=== PATIENT | female | born 1995 | race Caucasian/White ===

== ENCOUNTER → 2024-05-19 14:42 | Outpatient (REF) | payer BC, SELFPAY | LOC: PNTC 14:42 | PROVIDERS: ATTENDING PHYSICIAN Obstetrics & Gynecology | DX: Z36.0 Encounter for antenatal screening for chromosomal anomalies (principal); Z36.82 Encounter for antenatal screening for nuchal translucency; Z87.59 Personal history of other complications of pregnancy, childbirth and the puerperium | CPT/HCPCS: 76801; 76813 ==

== ENCOUNTER → 2024-06-14 10:52 | Outpatient (REF) | payer BC, SELFPAY | LOC: PNTC 10:52 | PROVIDERS: ATTENDING PHYSICIAN Obstetrics & Gynecology | DX: Z87.59 Personal history of other complications of pregnancy, childbirth and the puerperium (principal); Z36.9 Encounter for antenatal screening, unspecified | CPT/HCPCS: 76805; 76817 ==

== ENCOUNTER → 2024-07-14 08:11 | Outpatient (REF) | payer BC, SELFPAY | LOC: PNTC 08:11 | PROVIDERS: ATTENDING PHYSICIAN Obstetrics & Gynecology | DX: Z87.59 Personal history of other complications of pregnancy, childbirth and the puerperium (principal); Z36.9 Encounter for antenatal screening, unspecified; Z36.3 Encounter for antenatal screening for malformations | CPT/HCPCS: 76811; 76817 ==

== ENCOUNTER → 2024-08-09 06:59 | Outpatient (REF) | payer BC, SELFPAY | LOC: PNTC 06:59 | PROVIDERS: ATTENDING PHYSICIAN Obstetrics & Gynecology | DX: Z34.90 Encounter for supervision of normal pregnancy, unspecified, unspecified trimester (principal) | CPT/HCPCS: 76816 ==

== ENCOUNTER 2024-08-17 19:39 | Observation (INO) | payer BC, SELFPAY ==
[2024-08-17 20:03] VITALS: BP 119/58; BMI 25.8
[2024-08-17] MEDS: BENADRYL 25 MG IV (20:10)
[2024-08-17] MEDS: REGLAN 10 MG IV (20:16)
[2024-08-17 20:26] LABS: Hematocrit 36.5 % (37.0-47.0); Hemoglobin 12.7 g/dL (12.0-16.0); Mean Corp Hgb Conc. 34.8 g/dL (33.0-37.0); Mean Corpuscular Volume 89.2 fL (81.0-99.0); Platelet Count 265 10^3/uL (130-400); Red Cell Dist. Width 12.8 % (11.5-14.5)
[2024-08-17 20:49] LABS: ALT (SGPT) 16 U/L (0-35); AST (SGOT) 18 U/L (14-36); Albumin 3.3 g/dl (3.5-5.0); Alkaline Phosphatase 68 U/L (38-126); Blood Urea Nitrogen 12 mg/dl (7-17); Calcium 9.2 mg/dl (8.4-10.2); Carbon Dioxide 21 mmol/L (22-30); Chloride 108 mmol/L (98-107); Estimated Creatinine Clearance > 125 ml/min; Glucose 127 mg/dl (70-99); Potassium 3.5 mmol/L (3.5-5.1); Sodium 135 mmol/L (135-145); Total Protein 5.9 g/dl (6.3-8.2); eGFR > 60.00
== END 2024-08-17 21:56 | disposition home or self-care (01) ==
LOC: LDRP 19:39
PROVIDERS: ADMITTING PHYSICIAN Student in an Organized Health Care Education/Training Program; REFERRING PHYSICIAN Family Medicine
DX: O26.892 Other specified pregnancy related conditions, second trimester (principal); R51.9 Headache, unspecified; Z3A.25 25 weeks gestation of pregnancy
CPT/HCPCS: 80053; 82570; 84156; 85027; G0378

== ENCOUNTER → 2024-09-01 09:54 | Outpatient (REF) | payer BC, SELFPAY | LOC: PNTC 09:54 | PROVIDERS: ATTENDING PHYSICIAN Obstetrics & Gynecology | DX: Z34.90 Encounter for supervision of normal pregnancy, unspecified, unspecified trimester (principal) | CPT/HCPCS: 76816 ==

== ENCOUNTER → 2024-10-04 07:50 | Outpatient (REF) | payer BC, SELFPAY | LOC: PNTC 07:50 | PROVIDERS: ATTENDING PHYSICIAN Obstetrics & Gynecology | DX: Z34.90 Encounter for supervision of normal pregnancy, unspecified, unspecified trimester (principal); O36.5990 Maternal care for other known or suspected poor fetal growth, unspecified trimester, not applicable or unspecified; O28.3 Abnormal ultrasonic finding on antenatal screening of mother | CPT/HCPCS: 59025; 76816; 76820 ==

== ENCOUNTER → 2024-10-11 14:58 | Outpatient (REF) | payer BC, SELFPAY | LOC: PNTC 14:58 | PROVIDERS: ATTENDING PHYSICIAN Obstetrics & Gynecology | DX: O36.5990 Maternal care for other known or suspected poor fetal growth, unspecified trimester, not applicable or unspecified (principal) | CPT/HCPCS: 59025; 76815; 76820 ==

== ENCOUNTER → 2024-10-18 11:00 | Outpatient (REF) | payer BC, SELFPAY | LOC: PNTC 11:00 | PROVIDERS: ATTENDING PHYSICIAN Obstetrics & Gynecology | DX: O36.5910 Maternal care for other known or suspected poor fetal growth, first trimester, not applicable or unspecified (principal) | CPT/HCPCS: 59025; 76815; 76820 ==

== ENCOUNTER → 2024-10-25 07:30 | Outpatient (REF) | payer BC, SELFPAY | LOC: PNTC 07:30 | PROVIDERS: ATTENDING PHYSICIAN Obstetrics & Gynecology; OTHER PHYSICIAN Obstetrics & Gynecology | DX: O36.5990 Maternal care for other known or suspected poor fetal growth, unspecified trimester, not applicable or unspecified (principal) | CPT/HCPCS: 59025; 76816; 76820 ==

== ENCOUNTER → 2024-11-01 07:46 | Outpatient (REF) | payer BC, SELFPAY | LOC: PNTC 07:46 | PROVIDERS: ATTENDING PHYSICIAN Obstetrics & Gynecology | DX: O36.5930 Maternal care for other known or suspected poor fetal growth, third trimester, not applicable or unspecified (principal) | CPT/HCPCS: 59025; 76815; 76820 ==

== ENCOUNTER 2024-11-07 07:57 | Inpatient (IN) | payer BC, SELFPAY ==
[2024-11-07 08:04] VITALS: BMI 29.1
[2024-11-07 08:06] VITALS: BP 127/75
[2024-11-07 08:58] LABS: Hematocrit 35.5 % (37.0-47.0); Hemoglobin 12.0 g/dL (12.0-16.0); Mean Corp Hgb Conc. 33.8 g/dL (33.0-37.0); Mean Corpuscular Volume 90.6 fL (81.0-99.0); Nucleated Red Blood Cells % 0 %; Platelet Count 190 10^3/uL (130-400); Red Cell Dist. Width 13.3 % (11.5-14.5)
[2024-11-07] MEDS: PITOCIN 30 UNITS/NSS 500 ML IV (09:05)
[2024-11-07] MEDS: LR 1000 IV ×2 (09:05→15:15)
[2024-11-07] MEDS: SUBLIMAZE 100 MCG EPIDURAL (14:50)
[2024-11-07] MEDS: FENTANYL/BUPIVACAINE 100 EPIDURAL (14:51)
[2024-11-08 04:21] LABS: Hematocrit 35.8 % (37.0-47.0); Hemoglobin 12.1 g/dL (12.0-16.0)
[2024-11-08] MEDS: COLACE 100 MG PO (08:43)
[2024-11-08] MEDS: PRENATAL PLUS 1 TABLET PO (08:43)
[2024-11-08 14:56] LABS: Syphilis/T. pallidum Ab Reflex Negative (Negative)
[2024-11-08] MEDS: HYDROCORTISONE 1% CREAM 1 APPLIC TOPICAL (19:45)
[2024-11-08] MEDS: COLACE PO (20:30)
[2024-11-09] MEDS: MOTRIN 600 MG PO (02:39)
[2024-11-09] MEDS: TYLENOL 650 MG PO (02:39)
[2024-11-09] MEDS: PRENATAL PLUS 1 TABLET PO (09:49)
[2024-11-09] MEDS: HYDROCORTISONE 1% CREAM 1 APPLIC TOPICAL (09:49)
[2024-11-09] MEDS: COLACE 100 MG PO (09:49)
== END 2024-11-09 12:32 | disposition home or self-care (01) | DRG 807 ==
LOC: LDRP 07:57
PROVIDERS: ADMITTING PHYSICIAN Student in an Organized Health Care Education/Training Program
PROC: 10907ZC Drainage of Amniotic Fluid, Therapeutic from Products of Conception, Via Natural or Artificial Opening (ICD-10-PCS; 2024-11-07)
PROC: 10E0XZZ Delivery of Products of Conception, External Approach (ICD-10-PCS; 2024-11-07)
DX: O36.5930 Maternal care for other known or suspected poor fetal growth, third trimester, not applicable or unspecified (principal); Z37.0 Single live birth; Z3A.37 37 weeks gestation of pregnancy; O69.81X0 Labor and delivery complicated by cord around neck, without compression, not applicable or unspecified
CPT/HCPCS: 85014; 85018; 85025; 86780; 86850; 86900; 86901; 88307